=== PATIENT | male | born 1955 | race Two or more races ===

== ENCOUNTER → 2016-12-22 | Outpatient (CLI) | payer BC ==
[2016-12-22 09:41] LABS: EKG EKG PERFORMED
[2016-12-22 09:58] LABS: Basophils # (A) 0.1 k/uL (0-0.2); Basophils % (A) 1 %; CH 33.6; CHCM 34.7; Eosinophils # (A) 0.2 k/uL (0-0.7); Eosinophils % (A) 3 %; HCT 43.1 % (39.0-53.0); HDW 2.76; HGB 14.5 gm/dL (13.0-17.5); Luc # (Auto) 0.16; Luc % (Auto) 2; Lymphocytes # (A) 1.9 k/uL (1.0-4.8); Lymphocytes % (A) 23 %; MCH 32.7 pg (25.0-35.0); MCHC 33.6 g/dL (31.0-37.0); MCV 97.2 fL (80.0-100.0); Mean Platelet Volume 7.4; Monocytes # (A) 0.5 k/uL (0-1.0); Monocytes % (A) 6 %; Neutrophils # (A) 5.5 k/uL (1.3-7.7); Neutrophils % (A) 66 %; RBC 4.43 m/uL (4.30-5.90); RDW 13.1 % (11.5-15.5); WBC 8.3 k/uL (3.8-10.6); WBC (Perox) 8.42
[2016-12-22 10:25] LABS: Anion Gap 9 mmol/L; Carbon Dioxide 28 mmol/L (22-30); Chloride 104 mmol/L (98-107); Potassium 4.2 mmol/L (3.5-5.1); Sodium 141 mmol/L (137-145)
== END | disposition home or self-care (01) ==
LOC: LABWHC1 09:29
PROVIDERS: ATTEND Orthopaedic Surgery
DX: Z01.818 Encounter for other preprocedural examination (principal); M23.91 Unspecified internal derangement of right knee
CPT/HCPCS: 36415; 80051; 85025; 93005

== ENCOUNTER 2016-12-27 08:09 | Day surgery (SDC) | payer BC ==
[2016-12-24 13:49] VITALS: BMI 30.2
--- NOTE | 2016-12-26 15:37 | HP ---
DATE OF ADMISSION: Delta Ramos is a 61-year-old patient seen with progressive right knee pain. After treatment options were discussed, he elected to proceed with right knee arthroscopy. Consent was obtained. His past medical history is depression, gastroesophageal reflux disease. PAST SURGICAL HISTORY: Right knee arthroscopy, left knee arthroscopy. Daily medications: Citalopram. ALLERGIES ARE PENICILLIN AND NITROGLYCERIN. SOCIAL HISTORY: Patient denies current tobacco use. Physical evaluation of the right knee: His range of motion is 0 to 125 degrees, there is a mild effusion. Tenderness along the medial joint line. Positive medial Paxton's. Crepitus along the patellofemoral compartment with range of motion. Ligaments stable. Hip rotation without pain. Distal neurovascular exam is intact. Radiographs of the right knee revealed mild osteoarthritis. IMPRESSION: Internal derangement of right knee with medial meniscal tear. PLAN: Right knee arthroscopy with partial meniscectomy and debridement.
[~2016-12-27 08:09] MED LIST: DEXAMETHASONE SOD PHOSPHATE 10 MG/ML 1 ML VIAL IV ONE; LACTATED RINGERS 1,000 ML IV SCH; LIDOCAINE 1% 20 ML VIAL (10MG/ML) FOR IV START INTRADERMA PRN; MIDAZOLAM 2 MG/2 ML VIAL IV PRN; ONDANSETRON 4 MG/2 ML VIAL IVP ONE; SCOPOLAMINE 1.5MG/72HR PATCH TRANSDERM ONE; ceFAZolin 2 GM in SODIUM CHLORIDE 0.9% 100 ML IVPB ONE
[2016-12-27] MEDS ORDERED: MIDAZOLAM 2 MG/2 ML VIAL ONE (09:57)
[2016-12-27] MEDS ORDERED: PROPOFOL 10 MG/ML 20 ML VIAL IV ONE (09:57)
[2016-12-27] MEDS ORDERED: LIDOCAINE 1% INJ 10MG/ML (20 ML MDV) ONE (09:57)
[2016-12-27] MEDS ORDERED: BUPIVACAIN-EPI 0.25%-1:200,000 30 ML VIAL INTRAARTIC ONE (09:57)
[2016-12-27] MEDS ORDERED: ePHEDrine 50 MG/ML 1 ML AMP ONE (09:57)
[2016-12-27] MEDS ORDERED: fentaNYL (PF) 50 MCG/ML 2 ML AMP ONE (09:57)
[2016-12-27 10:55] VITALS: TEMP 97.8
--- NOTE | 2016-12-27 10:56 | P.OP ---
Date of Procedure: 12/27/16 Preoperative Diagnosis: Internal derangement right knee Postoperative Diagnosis: 1. Tear medial and lateral meniscus right knee 2. Grade 2 chondromalacia patella right knee 3. Reactive synovitis medial and suprapatellar compartments right knee Procedure(s) Performed: 1. Arthroscopic partial medial and lateral meniscectomy right knee 2. Arthroscopic chondroplasty patella right knee 3. Arthroscopic partial synovectomy medial and suprapatellar compartments right knee Anesthesia: AMPAROA, local Surgeon: Fili Shen Estimated Blood Loss (ml): 10 Pathology: none sent Condition: stable Disposition: PACU Indications for Procedure: 61-year-old patient seen with progressive right knee pain. After having treatment options discussed, he elected to proceed with right knee arthroscopy. Operative Findings: See description of procedure Description of Procedure: Patient was taken to the operative suite. Patient underwent a general anesthetic by the department of anesthesia. Patient was given preoperative antibiotics. The right lower extremity was placed in a well-padded arthroscopic leg berrios. The right leg was prepped and draped in the normal sterile orthopedic fashion. A lateral parapatellar and suprapatellar incision was made. Trochars were inserted. Arthroscopy was initiated. Suprapatellar pouch revealed thick reactive synovitis. The patellofemoral joint appeared to articulate congruently. There was grade 2 chondromalacia with some osteochondral tears present.. The scope was guided into the medial gutter. No loose bodies or plica were identified. The scope was then guided into the medial compartment. A medial parapatellar incision was made. Trocar inserted followed by probe. There was evidence for gouty crystallization. There was a complex tear of the posterior horn medial meniscus. Grade 1 chondral moist changes medial compartment with no osteochondral tears. No loose bodies. There was reactive synovitis anteriorly. A partial medial meniscectomy was performed on a stable tissue. I performed a partial synovectomy. The residual meniscus was stable. Scope and probe were then guided into the intercondylar notch. Cruciates were identified, probed and found to be stable. The scope and probe were then guided into lateral compartment. There was a radial tear involving the posterior horn lateral meniscus. There again was crystallization consistent with gout. No loose bodies, no reactive synovitis. Grade 1 chondromalacia with no osteochondral tears. A partial lateral meniscectomy was performed on a stable tissue. Shaver was removed. The residual meniscus was probed and found to be stable. The probe was removed. The scope was in guided back into the suprapatellar compartment. A motorized shaver was introduced into the super patellar compartment. I performed a chondroplasty patella. I debrided some piecemeal fragments of meniscus I encountered. I performed a partial synovectomy. Shaver was removed. I took one more look around the entire knee, no residual debris. Instruments were now removed from the joint. The joint was infiltrated with .25% Marcaine. Steri-Strips were applied to the portal sites. Sterile dressings were applied. The patient was placed into a TORIE hose. No tourniquet was utilized. The patient was awakened, transferred to a bed and taken to recovery stable satisfactory condition.
[2016-12-27] MEDS: HYDROmorphone 1 MG/ML 1 ML SYRINGE IVP PRN ×2 (11:09→11:18)
[2016-12-27 11:38] VITALS: RESP 16
[2016-12-27 13:05] VITALS: BP 126/73; PULSE 94
== END 2016-12-27 13:45 | disposition home or self-care (01) ==
LOC: OR 08:09
PROVIDERS: ATTEND Orthopaedic Surgery
DX: M23.221 Derangement of posterior horn of medial meniscus due to old tear or injury, right knee (principal); M23.251 Derangement of posterior horn of lateral meniscus due to old tear or injury, right knee; M22.41 Chondromalacia patellae, right knee; M65.861 Other synovitis and tenosynovitis, right lower leg; J45.909 Unspecified asthma, uncomplicated; F32.9 Major depressive disorder, single episode, unspecified; K21.9 Gastro-esophageal reflux disease without esophagitis; Z79.899 Other long term (current) drug therapy; Z88.0 Allergy status to penicillin; Z88.8 Allergy status to other drugs, medicaments and biological substances
CPT/HCPCS: 29880; J2250; J1100; J0690; J2405; J2001; J3010; J1170; J2704

== ENCOUNTER → 2023-04-04 | Outpatient (CLI) | payer MEDICARE ==
--- NOTE | 2023-04-04 09:51 | MR ---
EXAMINATION TYPE: MR knee LT wo con DATE OF EXAM: 04/04/2023 COMPARISON: NONE HISTORY: Lt knee outer aspect pain for 2 months TECHNIQUE: Multiplanar, multisequence images of the knee is performed without IV contrast. FINDINGS: MEDIAL MENISCUS: Subtle linear increased signal posterior horn toward central body extends to articul ar surface coronal image 25 and sagittal image 31. LATERAL MENISCUS: Anterior and posterior horns are intact without tear. CRUCIATE LIGAMENTS: The anterior and posterior cruciate ligaments are intact and unremarkable. COLLATERAL LIGAMENTS: The medial collateral ligament and lateral collateral ligament complex are inta ct and unremarkable. EXTENSOR MECHANISM: Visualized quadriceps and patellar tendons are intact. EFFUSION: No significant suprapatellar joint effusion. POPLITEAL CYST: Small multi septated popliteal/lubin cyst. TRICOMPARTMENT SPACES: Mild to moderate tricompartment joint space loss. Mild to moderate spurring pa tellofemoral compartment. CARTILAGE: Some fissuring and cartilaginous loss medial tibiofemoral compartment BONE MARROW SIGNAL: Round circumscribed 8 mm lesion medial fibular head coronal image 28 presumed niko ign. OTHER: No additional significant abnormality is appreciated. IMPRESSION: 1. Subtle oblique full-thickness tear posterior horn medial meniscus. 2. Mild/moderate tricompartment degenerative changes as detailed above. 3. Small multiseptated popliteal cyst.
== END | disposition home or self-care (01) ==
LOC: RADMRIMAIN 08:46
PROVIDERS: ATTEND Orthopaedic Surgery
DX: S83.242A Other tear of medial meniscus, current injury, left knee, initial encounter (principal); M17.12 Unilateral primary osteoarthritis, left knee; M71.22 Synovial cyst of popliteal space [Baker], left knee

== ENCOUNTER → 2023-07-26 | Outpatient (CLI) | payer MEDICARE ==
[2023-07-26 16:40] LABS: Basophils # (A) 0.05 X 10*3/uL (0.00-0.10); Basophils % (A) 0.8 %; Eosinophils # (A) 0.16 X 10*3/uL (0.04-0.35); Eosinophils % (A) 2.6 %; HGB 16.6 d/dL (13.0-17.0); Lymphocytes # (A) 1.32 X 10*3/uL (0.90-5.00); Lymphocytes % (A) 21.2 %; MCH 31.9 pg (27.0-32.0); MCHC 33.9 d/dL (32.0-37.0); MCV 94.2 FL (80.0-97.0); Mean Platelet Volume 11.3 FL (9.5-12.2); Monocytes # (A) 0.54 X 10*3/uL (0.20-1.00); Monocytes % (A) 8.7 %; NRBC Per 100 WBC 0 X 10*3/uL (0.00-0.01); Neutrophils # (A) 4.13 X 10*3/uL (1.80-7.70); Neutrophils % (A) 66.4 %; Platelet Count 168 X 10*3/uL (140-440); RDW 13.2 % (11.5-14.5); WBC 6.22 X 10*3/uL (4.50-10.00)
[2023-07-26 16:41] LABS: BUN/Creat Ratio 17.23 Ratio (12.00-20.00); Blood Urea Nitrogen 22.4 mg/dL (9.0-27.0); Calcium 10.1 mg/dL (8.7-10.3); Carbon Dioxide 26.1 mmol/L (21.6-31.8); Chloride 101 mmol/L (96-109); Glucose 102 mg/dL (70-110); Potassium 5.4 mmol/L (3.5-5.5); Sodium 139 mmol/L (135-145)
[2023-07-26 17:15] LABS: INR 0.96 sec (0.93-1.11); Prothrombin Time 10.4 sec (9.9-11.9)
== END | disposition home or self-care (01) ==
LOC: LABWHC1 08:58
PROVIDERS: ATTEND Orthopaedic Surgery
DX: Z01.812 Encounter for preprocedural laboratory examination (principal); Z22.322 Carrier or suspected carrier of Methicillin resistant Staphylococcus aureus; M16.11 Unilateral primary osteoarthritis, right hip
CPT/HCPCS: 80048; 85025; 85610; 86850; 86900; 86901; 87070

== ENCOUNTER → 2023-08-05 | Day surgery (SDC) | payer MEDICARE ==
[2023-07-31 13:09] VITALS: BMI 29.5
--- NOTE | 2023-08-04 12:44 | HP ---
HISTORY AND PHYSICAL DATE OF SCHEDULED SURGERY: 08/05/2023. HISTORY OF PRESENT ILLNESS: Delta Ramos is a 67-year-old gentleman seen with symptomatic right hip osteoarthritis. We discussed options for treatment. He elected to proceed with direct anterior right total hip arthroplasty. Consent regarding the procedure was obtained. PAST MEDICAL HISTORY: Hyperlipidemia. PAST SURGICAL HISTORY: Knee arthroscopy, hand surgery. DAILY MEDICATIONS: Claritin, Danuta. ALLERGIES: Penicillin, nitroglycerin. SOCIAL HISTORY: He denies current tobacco use. PHYSICAL EVALUATION OF RIGHT HIP: He has diffuse tenderness of left hip girdle. Limited range of motion with severe pain. Positive hip impingement sign. Straight-leg raise negative. Distal neurovascular exam is intact. RADIOGRAPHS: Right hip radiographs reveal severe osteoarthritic changes. IMPRESSION: 1. Right hip osteoarthritis. 2. Hyperlipidemia. PLAN: Direct anterior right total hip arthroplasty. MMODL / IJN: [id number] /
[~2023-08-05] MED LIST changes: +ACETAMINOPHEN TAB 500 MG TAB PO PRN; -DEXAMETHASONE SOD PHOSPHATE 10 MG/ML 1 ML VIAL IV ONE; +DEXAMETHASONE SOD PHOSPHATE 4 MG/ML 1 ML VIAL IV ONE; +GLYCOPYRROLATE 0.2 MG/ML 2 ML VIAL ONE; +HYDROcodone/APAP 5-325MG 1 EACH TAB PO PRN; +HYDROcodone/APAP 7.5-325MG 1 EACH TAB PO PRN; +HYDROmorphone 0.5 MG/0.5 ML SYRINGE IVP PRN; +HYDROmorphone 1 MG/ML 1 ML SYRINGE IVP PRN; +LACTATED RINGERS 1,000 ML IV ONE; +LIDOCAINE 1% (10MG/ML) FOR IV START INTRADERMA PRN; -LIDOCAINE 1% 20 ML VIAL (10MG/ML) FOR IV START INTRADERMA PRN; +LIDOCAINE 1% INJ 10MG/ML (20 ML MDV) ONE; +MELOXICAM 7.5 MG TAB PO PRN; -MIDAZOLAM 2 MG/2 ML VIAL IV PRN; +MIDAZOLAM 2 MG/2 ML VIAL IVP ONE; +MIDAZOLAM 2 MG/2 ML VIAL ONE; +NALOXONE 0.4 MG/ML 1 ML VIAL IV PRN; +NEOSTIGMINE 1 MG/ML 10 ML VIAL ONE; +ONDANSETRON 4 MG/2 ML VIAL ONE; +PROPOFOL 10 MG/ML 20 ML VIAL IV ONE; +ROCURONIUM 10 MG/ML (5 ML VIAL) IV ONE; -SCOPOLAMINE 1.5MG/72HR PATCH TRANSDERM ONE; +SUCCINYLCHOLINE CHLORIDE 200 MG/10 ML VIAL IV ONE; +TRANEXAMIC 1,000 MG/100ML-NACL 1,000 MG in SALINE 1 100ML.BAG IVPB PRN; +TRANEXAMIC 1,000 MG/100ML-NACL PREMIX BAG ONE; -ceFAZolin 2 GM in SODIUM CHLORIDE 0.9% 100 ML IVPB ONE; +droPERidol 5 MG/2 ML VIAL IVP PRN; +fentaNYL (PF) 50 MCG/ML 2 ML AMP IVP ONE; +fentaNYL (PF) 50 MCG/ML 2 ML AMP ONE
[2023-08-05 09:21] LABS: Glucose,Whole Blood 98 mg/dL (70-110)
--- NOTE | 2023-08-05 09:48 | P.ANPRN ---
Procedure Note - Anesthesia - Nerve Block Performed Right Julius Single Time Out Performed: Yes ([id number]) Date of Procedure: 08/05/23 Procedure Start Time: :36 Procedure Stop Time: : Indication: Acute Post-Operative Pain, Requested by Surgeon Specifically requested for management of pain by DrOpal: Fili Shen Sedation Type: Sedate with meaningful contact maintained Preparation: Sterile Prep Position: Supine Catheter: None Needle Types: Pajunk Needle Gauge: 21 Ultrasound used to visualize needle placement: Yes Ultrasound used to observe medication spread: Yes Injectate: 0.5% Ropivacaine (see comment for volume) (30CC) Blood Aspirated: No Pain Paresthesia on Injection Noted: No Resistance on Injection: Normal Image Stored and Saved: Yes Events: Uneventful and Well Tolerated
--- NOTE | 2023-08-05 11:49 | FL ---
Intraoperative/procedural fluoroscopic services were provided for total right hip arthroplasty. Total fluoroscopy time is 17.7 seconds with a total of 2 submitted images to PACS. Total DAP 0.7318 Gycm2. Please see the operative note for further details.
--- NOTE | 2023-08-05 11:52 | P.OP ---
Date of Procedure: 08/05/23 Preoperative Diagnosis: Right hip osteoarthritis Postoperative Diagnosis: Right hip osteoarthritis Procedure(s) Performed: Direct anterior right total hip arthroplasty Implants: 1. Depuy Corail 135 standard collar KA size 11 cemented femoral stem 2. Depuy pinnacle 56 mm press-fit acetabular shell 3. Depuy pinnacle neutral polyethylene acetabular liner 36 mm ID 56 mm OD 4. Biolox delta ceramic femoral head +1.5 36 mm Anesthesia: GETA, regional (erector spinae block) Surgeon: Fili Shen Structural Steel Engineer #1: Rafat Luna Estimated Blood Loss (ml): 120 Pathology: none sent Condition: stable Disposition: PACU Indications for Procedure: 67-year-old gentleman who was seen with symptomatic right hip osteoarthritis. After treatment options were discussed, he elected to proceed with direct anterior right total hip arthroplasty. Operative Findings: See description of procedure Description of Procedure: The patient was taken to the operative suite. Patient underwent a general anesthetic by the department of anesthesia. Patient was then transferred to the [facility] table. Patient was given preoperative IV antibiotics and TXA. Both lower extremities were placed in standard leg spars. The hip was then prepped and draped in the normal sterile orthopedic fashion. A standard anterior incision was made beginning 3 cm lateral and 1 cm distal to the ASIS extending 10 cm. Dissection was then carried down through the subcutaneous soft tissues down to the fascia overlying the tensor fascia kiara. An incision was now made through the fascia. Careful dissection was taken down exposing the tensor fascia kiara muscle. A Cobra retractor was now placed along the medial femoral neck and a second one along the lateral femoral neck. The venous circumflex vessels were now identified, cauterized and clipped. We identified the anterior hip capsule. An incision was made through the hip capsule along the lateral border. I performed a partial anterior capsulectomy. Retractors were now placed around the femoral neck itself. A femoral neck cut was now made with a sagittal saw. It was completed with an osteotome at the lateral neck area. The femoral head was now removed without difficulty. The extremity was now rotated to 60 of external rotation. It was locked in position. Residual labrum was now debrided out. Serial reaming was performed of the acetabulum while Jose BONNER assisted holding an anterior retractor for exposure. Once we reached the appropriate size and a trial was position and fit nicely. The appropriate size was now chosen opened and made available. It was introduced into the acetabulum without difficulty. The C-arm/fluoroscopy was now brought into the operative field. We made sure we had a true AP pelvic view. We now under direct C- arm/fluoroscopy introduced into the acetabular component with appropriate version and inclination. I held the cup in appropriate position well Jose BONNER used a mallet to seat the acetabular component. I noted the component now to be well seated and stable. Acetabular cup introduce her was removed. The C-arm was pulled back. An appropriate liner was introduced and clicked into position. It was felt to be stable. At this point retractors were removed. The extremity was now placed into 140 external rotation with no traction. The leg was now dropped to the ground and adducted. Appropriate retractors were now positioned along the proximal femur. We also placed our femoral look into position. Additional capsular releasing was performed to gain access to the proximal femur. We now used a box osteotome. A canal finder was now utilized. Serial broaching was now performed with the assistance of Jose BONNER tapping the broaches down with a mallet while held the broach in appropriate rotation and position. This was done until we reached the appropriate size with good overall rotational stability. Appropriate calcar planing was performed. A trial head/neck was placed into position. The hip was now reduced. The C- arm/fluoroscopy was brought back into the operative field. I obtained an AP pelvis which demonstrated adequate alignment. The trial components appeared adequately sized and positioned. The C-arm/fluoroscopy was pulled back. Retractors were repositioned and the hip was dislocated. The leg was again taken down to the ground and adducted. Appropriate retractors were repositioned as well as the femoral hook. All trial components were removed. The femoral implant was opened along with the femoral head. The femoral implant was introduced on the appropriate handle into our pre-broached area. I held the component position well Jose BONNER used a mallet to seat the femoral component. The femoral component was now noted to be well seated and stable.. The femoral head was introduced with good positioning and fixation noted. Retractors were now removed. The hip was now reduced. There appeared be good positioning of the hip confirmed on intraoperative fluoroscopy. Spot films were obtained to document this. A second gram of TXA was given. The deep and superficial soft tissues were infiltrated with local analgesic. Bipolar cautery had been utilized intermittently through the procedure for hemostasis. The wound was irrigated copiously with pulse lavage mechanical irrigation. The fascia was repaired with Vicryl suture. The subcutaneous soft tissues were repaired in layers with Vicryl suture. The skin was approximated with pernio/Dermabond. Sterile dressings were applied. Patient was then awakened, transferred to a bed and taken to recovery in stable condition. Jose BONNER assisted with the complex procedure.
[2023-08-05 12:28] VITALS: TEMP 97.6
[2023-08-05 15:57] VITALS: BP 139/85; PULSE 87; RESP 20
== END | disposition home health service (06) ==
LOC: OR 08:23
PROVIDERS: ATTEND Orthopaedic Surgery
DX: M16.11 Unilateral primary osteoarthritis, right hip (principal); E78.5 Hyperlipidemia, unspecified; J45.909 Unspecified asthma, uncomplicated; N18.30 Chronic kidney disease, stage 3 unspecified; F32.A Depression, unspecified; K21.9 Gastro-esophageal reflux disease without esophagitis; Z88.8 Allergy status to other drugs, medicaments and biological substances; Z87.891 Personal history of nicotine dependence; Z88.0 Allergy status to penicillin; Z79.899 Other long term (current) drug therapy
CPT/HCPCS: 97530; 97161; 64447; 73501; 27130; C1776; J2250; J0330; J1100; J2710; J0690; J2405; J2001; J3010; J2704; J1170

== ENCOUNTER 2023-09-05 13:22 | Day surgery (SDC) | payer MEDICARE ==
--- NOTE | 2023-09-05 01:02 | HP ---
HISTORY AND PHYSICAL DATE OF ANTICIPATED SURGERY: 09/05/2023 HISTORY: Delta Ramos is a 68-year-old gentleman seen with progressive left knee pain. Options were discussed. He elected to proceed with left knee arthroscopy. Consent regarding procedure obtained. PAST MEDICAL HISTORY: Gastroesophageal reflux disease, hyperlipidemia. PAST SURGICAL HISTORY: Right knee arthroscopy, left knee arthroscopy, right hand surgery. DAILY MEDICATIONS: 1. Danuta. 2. Claritin. 3. Ibuprofen. ALLERGIES: Penicillin, nitroglycerin. SOCIAL HISTORY: He denies current tobacco use. PHYSICAL EVALUATION OF LEFT KNEE: His range of motion is 0 to 130 degrees. Tenderness to medial joint line. Positive medial Paxton's. Ligaments stable. Hip rotation without pain. Distal neurovascular exam is intact. IMAGING STUDIES: Radiographs of the left knee revealed mild osteoarthritis. MRI left knee revealed medial meniscal tear and popliteal cyst. IMPRESSION: 1. Internal derangement of left knee with medial meniscal tear. 2. Hyperlipidemia. 3. Hypertension. PLAN: Left knee arthroscopy with partial medial meniscectomy and debridement. MMODL / IJN: [id number] /
[~2023-09-05 13:22] MED LIST changes: -ACETAMINOPHEN TAB 500 MG TAB PO PRN; -DEXAMETHASONE SOD PHOSPHATE 4 MG/ML 1 ML VIAL IV ONE; -GLYCOPYRROLATE 0.2 MG/ML 2 ML VIAL ONE; -HYDROcodone/APAP 5-325MG 1 EACH TAB PO PRN; -HYDROcodone/APAP 7.5-325MG 1 EACH TAB PO PRN; -HYDROmorphone 1 MG/ML 1 ML SYRINGE IVP PRN; -LACTATED RINGERS 1,000 ML IV ONE; -LIDOCAINE 1% (10MG/ML) FOR IV START INTRADERMA PRN; -LIDOCAINE 1% INJ 10MG/ML (20 ML MDV) ONE; -MELOXICAM 7.5 MG TAB PO PRN; -MIDAZOLAM 2 MG/2 ML VIAL IVP ONE; -MIDAZOLAM 2 MG/2 ML VIAL ONE; -NALOXONE 0.4 MG/ML 1 ML VIAL IV PRN; -NEOSTIGMINE 1 MG/ML 10 ML VIAL ONE; -ONDANSETRON 4 MG/2 ML VIAL ONE; -PROPOFOL 10 MG/ML 20 ML VIAL IV ONE; -ROCURONIUM 10 MG/ML (5 ML VIAL) IV ONE; -SUCCINYLCHOLINE CHLORIDE 200 MG/10 ML VIAL IV ONE; -TRANEXAMIC 1,000 MG/100ML-NACL 1,000 MG in SALINE 1 100ML.BAG IVPB PRN; -TRANEXAMIC 1,000 MG/100ML-NACL PREMIX BAG ONE; -droPERidol 5 MG/2 ML VIAL IVP PRN; -fentaNYL (PF) 50 MCG/ML 2 ML AMP IVP ONE; -fentaNYL (PF) 50 MCG/ML 2 ML AMP ONE
[2023-09-05] MEDS ORDERED: BUPIVACAINE (PF) 0.25% 30 ML VIAL INTRAARTIC ONE ×2 (14:10→15:39)
[2023-09-05] MEDS ORDERED: DEXAMETHASONE SOD PHOSPHATE 4 MG/ML 1 ML VIAL IVP ONE (14:15)
[2023-09-05 14:23] LABS: Glucose,Whole Blood 97 mg/dL (70-110)
[2023-09-05] MEDS ORDERED: LIDOCAINE 1% INJ 10MG/ML (20 ML MDV) ONE (15:36)
[2023-09-05] MEDS ORDERED: MIDAZOLAM 2 MG/2 ML VIAL ONE (15:36)
[2023-09-05] MEDS ORDERED: PROPOFOL 10 MG/ML 20 ML VIAL IV ONE (15:36)
[2023-09-05] MEDS ORDERED: fentaNYL (PF) 50 MCG/ML 2 ML AMP ONE (15:36)
--- NOTE | 2023-09-05 16:26 | P.OP ---
Date of Procedure: 09/05/23 Preoperative Diagnosis: Internal derangement left knee Postoperative Diagnosis: 1. Tear medial and lateral meniscus left knee 2. Grade 3/4 chondromalacia medial femoral condyle left knee 3. Reactive synovitis medial, lateral and suprapatellar compartments left knee 4. Grade 2 chondromalacia patella left knee Procedure(s) Performed: 1. Arthroscopic partial medial and lateral meniscectomy left knee 2. Arthroscopic microfracture medial femoral condyle left knee 3. Arthroscopic partial synovectomy medial, lateral and suprapatellar compartments left knee 4. Arthroscopic chondroplasty medial femoral condyle left knee 5. Arthroscopic chondroplasty patella left knee Anesthesia: AMPAROA, local Surgeon: Fili Shen Estimated Blood Loss (ml): 7 Pathology: none sent Condition: stable Disposition: PACU Indications for Procedure: 68-year-old patient seen with progressive left knee pain. After having treatment options discussed, he elected to proceed with arthroscopy. Operative Findings: See description of procedure Description of Procedure: Patient was taken to the operative suite. Patient underwent a general anesthetic by the department of anesthesia. Patient was given preoperative antibiotics. The left lower extremity was placed in a well-padded arthroscopic leg berrios. The left leg was prepped and draped in the normal sterile orthopedic fashion. A lateral parapatellar and suprapatellar incision was made. Trochars were inserted. Arthroscopy was initiated. Suprapatellar pouch revealed diffuse thick reactive synovitis. The patellofemoral joint appeared to articulate congruently. There was grade 2 chondromalacia of the patellofemoral joint with chondrocalcinosis as well as some diffuse osteochondral tears. The scope was guided into the medial gutter. No loose bodies or plica were identif ied. The scope was then guided into the medial compartment. A medial parapatellar incision was made. Trocar inserted followed by probe. There was a complex tear involving the posterior horn of the medial meniscus. There were diffuse chondrocalcinosis changes throughout the medial compartment. There was grade 3/4 chondromalacia of the medial femoral condyle with some osteochondral flap tears. There was thick reactive synovitis anteriorly. I performed a partial medial meniscectomy getting down to stable meniscal tissue. I performed a chondroplasty of the medial femoral condyle getting down to stable osteochondral tissue. I performed a partial synovectomy decompressing the reactive synovitis. I did note an area of exposed bone weightbearing surface medial femoral condyle measuring less than a centimeter in diameter. I introduced a microfracture awl and I performed a microfracture to that area at inserting the bone with resultant bleeding of the microfracture site. The residual meniscus was probed and was found to be stable. The residual osteochondral surface was stable. There was good decompression of the synovitis. Scope and probe were then guided into the intercondylar notch. Cruciates were identified, probed and found to be stable. The scope and probe were then guided into lateral compartment. There was a radial tear involving the midbody lateral meniscus. There was some diffuse chondrocalcinosis changes throughout the lateral compartment. There was thick reactive synovitis anteriorly. I performed a partial lateral meniscectomy getting down to stable m eniscal tissue. I performed a partial synovectomy decompressing reactive synovitis anteriorly. The residual meniscus was stable. There was good decompression of the synovitis. The scope was in guided back into the suprapatellar compartment. I introduced a motorized shaver into the suprapatellar compartment. I debrided some piecemeal fragments of meniscus I encountered. I performed a partial synovectomy. I performed a chondroplasty of the patella gained down to stable osteochondral tissue. There was good decompression of the synovitis. The residual osteochondral surface of patella was stable. I now took one more look around the entire knee, no residual debris. Instruments were now removed from the joint. The joint was infiltrated with .25% Marcaine. Steri-Strips were applied to the portal sites. Sterile dressings were applied. The patient was placed into a TORIE hose. No tourniquet was utilized. The patient was awakened, transferred to a bed and taken to recovery stable satisfactory condition.
[2023-09-05 16:28] VITALS: PULSE 77; TEMP 97.5
[2023-09-05 17:10] VITALS: RESP 16
[2023-09-05 17:32] VITALS: BP 165/79
== END 2023-09-05 17:33 | disposition home or self-care (01) ==
LOC: OR 13:22
PROVIDERS: ATTEND Orthopaedic Surgery
DX: S83.282A Other tear of lateral meniscus, current injury, left knee, initial encounter (principal); M23.92 Unspecified internal derangement of left knee; M22.42 Chondromalacia patellae, left knee; M65.162 Other infective (teno)synovitis, left knee; I12.9 Hypertensive chronic kidney disease with stage 1 through stage 4 chronic kidney disease, or unspecified chronic kidney disease; N18.30 Chronic kidney disease, stage 3 unspecified; K21.9 Gastro-esophageal reflux disease without esophagitis; E78.5 Hyperlipidemia, unspecified; Z79.1 Long term (current) use of non-steroidal anti-inflammatories (NSAID); Z79.899 Other long term (current) drug therapy; Z88.0 Allergy status to penicillin; X58.XXXA Exposure to other specified factors, initial encounter
CPT/HCPCS: 29880; 29879; J2250; J1100; J0690; J2405; J2001; J3010; J2704; J0665

== ENCOUNTER → 2025-04-09 | Outpatient (CLI) | payer MEDICARE ==
--- NOTE | 2025-04-12 09:31 | MR ---
EXAMINATION TYPE: MR shoulder RT wo con DATE OF EXAM: 04/09/2025 10:06 AM COMPARISON: Outside right shoulder x-ray March 23, 2025 CLINICAL INDICATION: Male, 69 years old with history of M25.511 RIGHT SHOULDER PAIN, right shoulder p ain for 8 months. IV Contrast: cc (None if empty) TECHNIQUE: Multiplanar, multisequence imaging of the right shoulder is performed without contrast. FINDINGS: Rotator Cuff: Increased signal in the infraspinatus tendon and to lesser degree the supraspinatus ten don. Increased signal and partial tearing of the superior fibers of the supraspinatus tendon. Rotator cuff muscle bulk is preserved. Acromioclavicular Joint: Moderate narrowing and spurring at the acromioclavicular joint. Moderate sup erior capsular hypertrophy. Loss of underlying fat plane. Glenohumeral Joint: Narrowing is present. Small sized joint effusion. Tiny Subchondral cystic change medial humeral head coronal image 17. Labrum: Heterogeneous increased signal superior labrum Biceps Tendon: The long head of biceps is not well identified in normal location within bicipital maureen ove. Bone marrow signal: Extensive subchondral cystic change involving the anterolateral aspect of the hum eral head. Also additional subchondral cystic change anterior aspect of the humerus. Subchondral cyst ic change superior osseous glenoid. Other: No additional significant abnormality is appreciated. IMPRESSION: 1. Mild/moderate tendinosis of the supraspinatus tendon. More moderate tendinosis and partial tearing of the infraspinatus and subscapularis tendons. 2. Superior labral tear with biceps anchor disruption. 3. Moderate to severe degenerative changes are present as detailed above. [facility], , 04/12/2025 9:29 AM
== END | disposition home or self-care (01) ==
LOC: RADMRIMAIN 09:15
PROVIDERS: ATTEND Orthopaedic Surgery
DX: M67.813 Other specified disorders of tendon, right shoulder (principal); M19.011 Primary osteoarthritis, right shoulder; M75.111 Incomplete rotator cuff tear or rupture of right shoulder, not specified as traumatic